=== PATIENT | male | born 1975 | race Caucasian/White ===

== ENCOUNTER → 2016-05-17 | Outpatient (CLI) | payer OTHER ==
[~2016-05-17] MED LIST: ADVAIR 250-501 EACH IH; CENTRUM PO; CLOZAPINE200 MG PO; DESYREL50 MG PO; FLOMAX0.4 M1 PO; LIPITOR20 MG PO; MIRALAX17 G2 PO; PROTONIX PO; PROZAC40 MG PO; SPIRIVA18 MCG INH; VITAL-D RX TABL1 TAB PO; ZOLOFT100 MG PO
--- NOTE | ~2016-05-17 | MR32 ---
[facility]. [facility] A Service of [facility] RADIOLOGY TEXT RESULTS PATIENT: RUTH VELASQUEZ LOCATION: [facility] : 71 UNIT #: [id number] AGE: [address]: Ronel Salomon MD SEX: M ORDER DR: [id number] [place] [id number] O MR#: [id number] Acc #: [id number] NAME: RUTH VELASQUEZ : 1975 SEX: M STUDY DATE/TIME: 05/17/2016 13:09 UNIT: [facility] ROOM: STUDY DESCRIPTION: MR Cervical Wo Contrast Attending Physician: Ronel Salomon M.D. Referring Physician: Ronel Salomon M.D. Ordering Physician: Ronel Salomon M.D. Primary Care Physician: Ronel Salomon M.D. [facility] REPORT This report is preliminary unless electronic signature is present. EXAM Cervical spine MRI, no contrast, 05/17/2016. PROCEDURE Routine cervical spine MRI without contrast. COMPARISON STUDIES None HISTORY Worsening neck pain with right arm radiculopathy. FINDINGS There is a slight loss of lordosis, but alignment is otherwise normal. Bone marrow and cord signal are normal. The posterior fossa and its contents are normal, and the paraspinous soft tissues are unremarkable. At C2-C3, the canal and right foramen are normal, and there is minimal left foraminal narrowing. At C3-C4, there is no canal stenosis, and there is minimal, if any, bilateral foraminal narrowing. At C4-C5, there is no canal stenosis and, again, there is minimal, if any, bilateral foraminal narrowing. 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 At C6-C7, there is a disc osteophyte complex with mild canal stenosis. No STS. [facility] A Service of [facility] RADIOLOGY TEXT RESULTS PATIENT: RUTH VELASQUEZ [id number] [birth year] UNIT #: [id number] AGE: [address]: Ronel Salomon MD SEX: M ORDER DR: cord compression, and minimal, if any right, and mild left foraminal stenosis. At C7-T1, the canal and foramina are normal. IMPRESSION Possible slight right-sided cord compression at C5-C6, due to right-sided disc osteophyte complex; no abnormal signal. Please see above for additional details regarding canal or foraminal narrowing. Dictated by... William Garcia M.D. THIS IS AN ELECTRONICALLY VERIFIED REPORT William Garcia M.D. at 05/23/2016 5:11 PM SUSAN/jarret TD: 05/18/2016 12:56 JOB #: [id number] [facility] REPORT
== END | disposition home or self-care (01) ==
LOC: SMRI 12:53
DX: M50.30 Other cervical disc degeneration, unspecified cervical region (principal); G60.9 Hereditary and idiopathic neuropathy, unspecified; M25.78 Osteophyte, vertebrae
CPT/HCPCS: 72141